=== PATIENT | male | born 1995 | race Caucasian/White ===

== ENCOUNTER 2019-07-08 14:02 | Emergency (ER) | payer SELFPAY ==
[~2019-07-08] VITALS: Ht 182.3 cm; Wt 68.2 kg
--- NOTE | 2019-07-08 14:23 | ED Cough/URI ---
General Stated Complaint: DIZZINESS Source: patient History of Present Illness Date Seen by Provider: Jul 08, 2019 Time Seen by Provider: 14:10 Initial Comments 23-year-old male presents with a female partner with a 2 day history of cough cold headache. Patient has a history of pectus excavatum with no other complications. Patient states his father has had the flu and he feels he is getting the flu 2. Has no history of cardiovascular pulmonary GI or renal disease. He does complain of a headache for the past evening. No history of trauma. Patient has given informed consent for diagnostic and therapeutic services. He also feels weak has low-grade temperature and feels congested Timing/Duration: yesterday Severity/Quality: moderate Prior Episodes/Possible Cause: illness exposure (father with the flu) Modifying Factors: Improves With Activity (feels weak and does not want a work), Improves With Coughing Associated Symptoms: cough, dizziness, headache, muscle aches, shortness of breath, sore throat Allergies and Home Medications Allergies Coded Allergies: No Known Drug Allergies (Unverified , 07/08/19) Patient Home Medication List Home Medication List Reviewed: Yes Review of Systems Review of Systems Constitutional: see HPI, chills, dizziness, fever, malaise, weakness EENTM: nose congestion, throat pain, other (poor oral hygiene) Respiratory: cough, other (history of pectus excavatum) Cardiovascular: other (patient reports feeling weak) Gastrointestinal: nausea Genitourinary: no symptoms reported Musculoskeletal: back pain, neck pain (with headache) Skin: no symptoms reported Psychiatric/Neurological: No Symptoms Reported Hematologic/Lymphatic: No Symptoms Reported Immunological/Allergic: no symptoms reported Past Slfivqz-Poplbx-Cocsaa Hx Patient Social History Recent Foreign Travel: No Past Medical History Respiratory: No Currently Using CPAP: No Currently Using BIPAP: No Cardiac: No Neurological: No Headaches /Migraines Genitourinary: No Gastrointestinal: No Chronic Back Pain (pectus excavatum) Are Your Blood Sugars Over 250: No HEENT: No Loss of Vision: Denies Hearing Impairment: Denies Cancer: No Psychosocial: No Integumentary: No Blood Disorders: No Adverse Reaction/Blood Tranf: No Family Medical History Reviewed Nursing Family Hx Physical Exam Vital Signs - First Documented 07/08/19 14:07 Temp 36.3 Pulse 89 Resp 18 B/P (MAP) 148/83 (104) Pulse Ox 100 O2 Delivery Room Air Capillary Refill : Height: '" Weight: lbs. oz. kg; BMI Method: General Appearance: WD/WN, moderate distress (and cough coryza headache and viral type syndrome), thin (with pectus excavatum) Eyes: Bilateral Eye Normal Inspection, Bilateral Eye PERRL, Bilateral Eye EOMI HEENT: PERRL/EOMI, normal ENT inspection, pharynx normal, pharyngeal erythema, other (nasal discharge) Neck: non-tender, full range of motion, supple, normal inspection Respiratory: chest non-tender, lungs clear, normal breath sounds, no respiratory distress, no accessory muscle use, other (pectus excavatum) Cardiovascular: regular rate, rhythm, no edema, no gallop, no JVD, no murmur Gastrointestinal: normal bowel sounds, non tender, soft, no organomegaly, no pulsatile mass Extremities: normal range of motion, non-tender, normal inspection, no pedal edema, no calf tenderness 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, no motor/sensory deficits, alert, normal mood/affect, oriented x 3 Skin: normal color, warm/dry Lymphatic: no adenopathy Progress/Results/Core Measures Suspected Sepsis SIRS Temperature: Pulse: Respiratory Rate: Blood Pressure / Mean: Results/Orders Lab Results Laboratory Tests Test 07/08/19 14:13 Range/Units Group A Streptococcus Screen NEGATIVE NEGATIVE Micro Results Microbiology 07/08/19 Influenza Types A,B Antigen (LACI) - Final, Complete My Orders Orders - NICCI DORAN DO Influenza A And B Antigens (07/08/19 14:14) Rapid Strep A Screen (07/08/19 14:14) Vital Signs/I&O 07/08/19 07/08/19 14:07 15:00 Temp 36.3 Pulse 89 Resp 18 B/P (MAP) 148/83 (104) Pulse Ox 100 O2 Delivery Room Air Room Air Capillary Refill : Departure Impression Primary Impression: Upper respiratory infection Disposition: 01 HOME, SELF-CARE Condition: Stable Departure-Patient Inst. Decision time for Depature: 15:18 Referrals: NO,LOCAL PHYSICIAN (PCP) Primary Care Physician Patient Instructions: Viral Upper Respiratory Infection, Adult (DC) Add. Discharge Instructions: Patient is negative for strep and negative for influenza A and B. Most likely has a viral syndrome he will continue on acetaminophen fluids rest avoid chills follow-up with primary care provider. NICCI DORAN DO Jul 08, 2019 14:23
[2019-07-08 15:36] VITALS: BP 132/71
== END 2019-07-08 15:36 | disposition home or self-care (01) ==
LOC: EDUNIT# 14:02 → ER FS 14:04
DX: J06.9 Acute upper respiratory infection, unspecified (principal)
CPT/HCPCS: 87430; 87804

== ENCOUNTER 2020-03-18 07:43 | Emergency (ER) | payer SELFPAY ==
--- NOTE | 2020-03-18 08:03 | ED Chest Pain ---
General Chief Complaint: Chest Wall Stated Complaint: CHEST PAIN; SOB Nursing Triage Note: Started having chest pain 4 hours ago while at work. States he has a sharp pain whe he is lifting boxes and moving his arm that takes his breath away. No cardiac hx. Nursing Sepsis Screen: No Definite Risk Source: patient, RN notes reviewed Exam Limitations: no limitations History of Present Illness Date Seen by Provider: Mar 18, 2020 Time Seen by Provider: 08:00 Initial Comments This patient is a 24-year-old male that presents to the emergency department with complaints of chest pain that started 4 hours ago while he was work. Patient describes sharp pain when he was moving and lifting boxes and moving his arms. Patient states he would take his breath away was so sharp. Patient does have a long history of Pectus excavatum. Patient has been advised every since he was 4 years old to have his sternum fixed with a steel marialuisa that the patient states he doesn't want to have that surgery. Patient has no pain at this time. Only had this pain briefly while moving boxes. EKG performed on arrival shows sinus rhythm with a heart rate is [address] changes. Timing/Duration: 1-3 hours Severity/Quality: mild, sharp Location: other (right upper chest) Radiation: no radiation Activities at Onset: activity Prior CP/Workup: no prior chest pain, no prior cardiac workup, non-cardiac Modifying Factors: improves with movement Associated Symptoms: shortness of breath (only at the time of a sharp pain) Allergies and Home Medications Allergies Coded Allergies: No Known Drug Allergies (Unverified , 07/08/19) Patient Home Medication List Home Medication List Reviewed: Yes Review of Systems Review of Systems Constitutional: No no symptoms reported; see HPI; No chills, No diaphoresis, No dizziness, No fever, No malaise, No weakness, No weight gain, No weight loss, No other EENTM: No No Symptoms Reported, No See HPI, No Blurred Vision, No Double Vision, No Eye Pain, No Eye Tearing, No Ear Drainage, No Ear Pain, No Mouth Pain, No Mouth Swelling, No Nose Congestion, No Nose Pain, No Throat Pain, No Throat Swelling, No Other Respiratory: Denies No Symptoms Reported; See HPI; Denies Cough, Denies Orthopnea; Shortness of Air; Denies SOA With Exertion, Denies SOA at Rest, Denies Stridor, Denies Wheezing, Denies Other Cardiovascular: Denies No Symptoms Reported; See HPI, Chest Pain; Denies Edema, Denies Irregular Heart Rate, Denies Lightheadedness, Denies Palpitations, Denies Syncope, Denies Other Gastrointestinal: Denies No Symptoms Reported, Denies See HPI, Denies Abdomen Distended, Denies Abdominal Pain, Denies Blood Streaked Stools, Denies Constipated, Denies Diarrhea, Denies Difficulty Swallowing, Denies Nausea, Denies Poor Appetite, Denies Poor Fluid Intake, Denies Rectal Bleeding, Denies Vomiting, Denies Other Genitourinary: Denies No Symptoms Reported, Denies See HPI, Denies Burning, Denies Discharge, Denies Drainage, Denies Frequency, Denies Flank Pain, Denies Hematuria, Denies Incontinence, Denies Pain, Denies Urgency, Denies Other Musculoskeletal: No no symptoms reported, No see HPI, No back pain, No gout, No joint pain, No joint swelling, No muscle pain, No muscle stiffness, No muscle cramps, No muscle twitching, No muscle weakness, No neck pain, No other Skin: No no symptoms reported, No see HPI, No change in color, No change in hair/nails, No dryness, No hx of skin cancer, No lesions, No lumps, No pruritus, No rash, No other All Other Systems Reviewed Negative Unless Noted: Yes Past Ppjghta-Wshrrp-Mnxovz Hx Patient Social History Alcohol Use: Denies Use Recreational Drug Use: No Smoking Status: Never a Smoker 2nd Hand Smoke Exposure: No Recent Foreign Travel: No Contact w/Someone Who Travel: No Recent Infectious Disease Expo: No Recent Hopitalizations: No Seasonal Allergies Seasonal Allergies: No Past Medical History Surgeries: Yes (ear tubes at 12 years of age) Ear Surgery Respiratory: No Currently Using CPAP: No Currently Using BIPAP: No Cardiac: No Neurological: Yes Headaches /Migraines Genitourinary: No Gastrointestinal: No Musculoskeletal: Yes (sternum excavatum ) Chronic Back Pain Endocrine: No HEENT: No Loss of Vision: Denies Hearing Impairment: Denies Cancer: No Psychosocial: No Integumentary: No Blood Disorders: No Adverse Reaction/Blood Tranf: No Physical Exam Vital Signs Vital Signs - First Documented 03/18/20 07:54 Temp 36.2 Pulse 65 Resp 15 B/P (MAP) 153/80 (104) Pulse Ox 98 Capillary Refill : Less Than 3 Seconds Height, Weight, BMI Height: '" Weight: lbs. oz. kg; 20.00 BMI Method: General Appearance: No Apparent Distress, WD/WN Respiratory: Chest Non Tender, Lungs Clear, Normal Breath Sounds, No Accessory Muscle Use, No Respiratory Distress, Decreased Breath Sounds (on the right side.) Cardiovascular: Regular Rate, Rhythm, No Edema, No Gallop, No JVD, No Murmur, Normal Peripheral Pulses Gastrointestinal: Normal Bowel Sounds, No Organomegaly, No Pulsatile Mass, Non Tender Extremity: Normal Capillary Refill, Normal Inspection, Normal Range of Motion, Non Tender, No Calf Tenderness, No Pedal Edema Skin: Normal Color, Warm/Dry Procedures/Interventions Chest Tube : Chest Tube Position: Right Lower Chest Tube Location: Mid-Axillary Chest Chest Tube Procedure: betadine prep, sterile drapes applied, sterile dressing applied Anesthesia: 1% Lidocaine Volume Anesthetic (ccs): 10 [place] of [place]: Yes Number of Attempts: 1 Tube Drainage: see nurses notes Tube Sutured to Skin: Yes Post Procedure CXR?: Yes Progress Chest tube in place. Much improvement post chest x-ray. Patient breathing much easier. Patient experienced little to no pain. Progress/Results/Core Measures Results/Orders Lab Results Laboratory Tests Test 03/18/20 08:18 Range/Units White Blood Count 12.0 H 4.3-11.0 10^3/uL Red Blood Count 5.63 4.35-5.85 10^6/uL Hemoglobin 16.9 13.3-17.7 G/DL Hematocrit 49 40-54 % Mean Corpuscular Volume 87 80-99 FL Mean Corpuscular Hemoglobin 30 25-34 PG Mean Corpuscular Hemoglobin Concent 35 32-36 G/DL Red Cell Distribution Width 12.5 10.0-14.5 % Platelet Count 224 130-400 10^3/uL Mean Platelet Volume 10.6 H 7.4-10.4 FL Immature Granulocyte % (Auto) 0 % Neutrophils (%) (Auto) 77 H 42-75 % Lymphocytes (%) (Auto) 17 12-44 % Monocytes (%) (Auto) 5 0-12 % Eosinophils (%) (Auto) 1 0-10 % Basophils (%) (Auto) 0 0-10 % Neutrophils # (Auto) 9.2 H 1.8-7.8 X 10^3 Lymphocytes # (Auto) 2.0 1.0-4.0 X 10^3 Monocytes # (Auto) 0.6 0.0-1.0 X 10^3 Eosinophils # (Auto) 0.1 0.0-0.3 10^3/uL Basophils # (Auto) 0.0 0.0-0.1 10^3/uL Immature Granulocyte # (Auto) 0.0 0.0-0.1 10^3/uL Prothrombin Time 13.7 12.2-14.7 SEC INR Comment 1.0 0.8-1.4 Sodium Level 140 135-145 MMOL/L Potassium Level 4.2 3.6-5.0 MMOL/L Chloride Level 100 98-107 MMOL/L Carbon Dioxide Level 26 21-32 MMOL/L Anion Gap 14 5-14 MMOL/L Blood Urea Nitrogen 10 7-18 MG/DL Creatinine 0.91 0.60-1.30 MG/DL Estimat Glomerular Filtration Rate > 60 BUN/Creatinine Ratio 11 Glucose Level 116 H 70-105 MG/DL Calcium Level 10.2 H 8.5-10.1 MG/DL Corrected Calcium 8.5-10.1 MG/DL Total Bilirubin 0.4 0.1-1.0 MG/DL Aspartate Amino Transf (AST/SGOT) 20 5-34 U/L Alanine Aminotransferase (ALT/SGPT) 8 0-55 U/L Alkaline Phosphatase 65 40-136 U/L Troponin I < 0.30 <0.30 NG/ML Pro-B-Type Natriuretic Peptide 12.8 <75.0 PG/ML Total Protein 8.3 H 6.4-8.2 GM/DL Albumin 5.4 H 3.2-4.5 GM/DL My Orders Orders - ONI PHILIP MD Chest 1 View Ap/Pa Only (03/18/20 07:57) Ekg Tracing (03/18/20 07:57) Ed Iv/Invasive Line Start (03/18/20 08:12) Cbc With Automated Diff (03/18/20 08:12) Comprehensive Metabolic Panel (03/18/20 08:12) Troponin I Fs (03/18/20 08:12) Protime With Inr (03/18/20 08:12) Probnp Fs (03/18/20 08:12) Morphine Injection (Morphine Injection (03/18/20 08:12) Ondansetron Injection (Zofran Injectio (03/18/20 08:15) Chest 1 View Ap/Pa Only (03/18/20 08:14) Lidocaine 1% Inj 20 Ml (Xylocaine 1% Inj (03/18/20 08:14) Medications Given in ED Current Medications Medications Dose Ordered Sig/Lizzeth Route Start Time Stop Time Status Last Admin Dose Admin Lidocaine HCl 20 ml STK-MED ONCE .ROUTE 03/18/20 08:14 03/18/20 08:19 DC 03/18/20 08:41 20 ML Ondansetron HCl 4 mg ONCE ONCE IVP 03/18/20 08:15 03/18/20 08:16 DC 03/18/20 08:22 4 MG Vital Signs/I&O 03/18/20 07:54 Temp 36.2 Pulse 65 Resp 15 B/P (MAP) 153/80 (104) Pulse Ox 98 Blood Pressure Mean: 104 Progress Progress Note : Time: 08:47 Progress Note Chest x-ray showed right tension pneumothorax on initial exam. Discussed at length with patient who has a history of Pectus excavatum. Did consent the patient to have chest tube placement right side. Using sterile technique did place a 12 [place]amanian thoracotomy tube right lateral chest midaxillary 9 just anterior to this position between the fifth and sixth rib. Patient expressed little to no pain. Good law[place] of air. Thoracotomy tube sutured into place 2. 0 Prolene. Using petroleum gauze around the tube and then or before bandages and tape to secure bandages. Patient is feeling much improved and breathing easier. Breath sounds complete pulse ox On Room Air. After discussing with patient and family. Patient requesting to go to [facility]. Initial ECG Impression Date: Mar 18, 2020 Initial ECG Impression Time: 07:45 Initial ECG Rate: 61 Initial ECG Rhythm: Normal Sinus Initial ECG Intervals: Normal Initial ECG Impression: Normal Initial ECG Comparisson: No Previous ECG Available Comment Normal sinus rhythm heart rate 61. Departure Impression Primary Impression: Tension pneumothorax, spontaneous Additional Impression: Pectus excavatum Disposition: XFER SHT-TRM HOSP Condition: Stable Transfer Transfer Reason: Patient preference Time Spoke to Accepting Phy: 09:[address] Davies has accepted this patient for transfer he will see patient upon arrival to [facility]. Transfer Time: 09:01 Transfer Facility: [facility] Method of Transfer: EMS Departure-Patient Inst. Referrals: NO,LOCAL PHYSICIAN (PCP/Family) Primary Care Physician ONI PHILIP MD Mar 18, 2020 08:03
[2020-03-18] MEDS ORDERED: morphine INJ 10 MG/ML 1ML (SYR OR VIAL) IVP STA (08:12)
[2020-03-18] MEDS ORDERED: LIDOCAINE 1% INJ 20 ML 20 ML VIAL ONE (08:14)
[2020-03-18] MEDS ORDERED: ONDANSETRON 4 MG/2 ML (SDV) Z0FRAN IVP ONE (08:15)
[2020-03-18 08:28] LABS: BASOPHILS % (AUTO) 0 % (0-10); EOSINOPHILS # (AUTO) 0.1 10^3/uL (0.0-0.3); EOSINOPHILS % (AUTO) 1 % (0-10); HEMATOCRIT 49 % (40-54); HEMOGLOBIN 16.9 G/DL (13.3-17.7); LYMPHOCYTES % (AUTO) 17 % (12-44); MEAN CORPUSCULAR HEMOGLOBIN 30 PG (25-34); MEAN CORPUSCULAR HGB CONC 35 G/DL (32-36); MEAN CORPUSCULAR VOLUME 87 FL (80-99); MEAN PLATELET VOLUME 10.6 FL (7.4-10.4); MONOCYTES # (AUTO) 0.6 X 10^3 (0.0-1.0); MONOCYTES % (AUTO) 5 % (0-12); NEUTROPHILS # (AUTO) 9.2 X 10^3 (1.8-7.8); NEUTROPHILS % (AUTO) 77 % (42-75); PLATELET COUNT 224 10^3/uL (130-400)
[2020-03-18 08:35] LABS: PROTHROMBIN TIME PATIENT 13.7 SEC (12.2-14.7)
[2020-03-18 08:55] LABS: ALANINE AMINOTRANSFERASE 8 U/L (0-55); ALBUMIN 5.4 GM/DL (3.2-4.5); ALKALINE PHOSPHATASE 65 U/L (40-136); BILIRUBIN,TOTAL 0.4 MG/DL (0.1-1.0); BUN/CREATININE RATIO 11; CALCIUM 10.2 MG/DL (8.5-10.1); CARBON DIOXIDE 26 MMOL/L (21-32); CHLORIDE 100 MMOL/L (98-107); CREATININE SERUM 0.91 MG/DL (0.60-1.30); GFR ESTIMATED > 60; GLUCOSE 116 MG/DL (70-105); POTASSIUM 4.2 MMOL/L (3.6-5.0); SODIUM 140 MMOL/L (135-145); TOTAL PROTEIN 8.3 GM/DL (6.4-8.2)
--- NOTE | 2020-03-18 09:03 | Diagnostic Imaging Report ---
INDICATION: Right-sided chest pain and shortness of breath EXAMINATION: Single view chest from 03/18/2020 FINDINGS: There is a large right pneumothorax with early findings of tension. Heart otherwise normal. Pulmonary vasculature poorly evaluated but grossly unremarkable on the left. Left lung clear. IMPRESSION: 1. Large right pneumothorax suspicious for a tension pneumothorax. The subsequent chest x-ray from the same date at a later time is already available at the time of dictation with a chest tube present. Dictated by: Dictated on workstation # [id number]
--- NOTE | 2020-03-18 09:18 | Diagnostic Imaging Report ---
INDICATION: Post chest tube placement. EXAMINATION: 2 view chest 03/18/2020 at 8:51 a.m., comparison made to 03/18/2020 at 8:01 a.m. FINDINGS: There has been interval placement of right-sided chest tube. The previously noted pneumothorax has markedly improved. There are no infiltrates or effusions. Heart and pulmonary vasculature normal. IMPRESSION: 1. Marked improvement of the right pneumothorax status post chest tube placement. Dictated by: Dictated on workstation # [id number]
[2020-03-18 12:08] VITALS: BP 124/92
== END 2020-03-18 12:08 | disposition short-term general hospital (02) ==
LOC: EDUNIT# 07:43 → ER FS 07:45
DX: J93.0 Spontaneous tension pneumothorax (principal); Q67.6 Pectus excavatum
CPT/HCPCS: 32551; 36415; 71045; 80053; 83880; 84484; 85025; 85610; 93005

== ENCOUNTER 2020-07-11 19:19 | Emergency (ER) | payer SELFPAY ==
[~2020-07-11] VITALS: Ht 182.9 cm; Wt 72.6 kg
[2020-07-11 19:24] VITALS: BP 173/78
--- NOTE | 2020-07-11 19:44 | ED General ---
General Chief Complaint: Altered Mental Status Stated Complaint: AMS Source of Information: Patient History of Present Illness Date Seen by Provider: Jul 11, 2020 Time Seen by Provider: 19:21 Initial Comments 24-year-old male presenting with complaints of sudden onset of confusion. He states 45 minutes prior to arrival he started having confusion. He was with his girlfriend when this started. He is having trouble trying to concentrate and answer questions. He states that this is happened to him before but could not give specifics. He is very anxious and having trouble sitting still. He initially denied using any drugs but then later stated that he had used marijuana earlier today. He denies any headache or pain anywhere in his body. He denied any head injury. He denies taking any medications on a routine basis and denies allergies to medications. Allergies and Home Medications Allergies Coded Allergies: No Known Drug Allergies (Unverified , 07/08/19) Patient Home Medication List Home Medication List Reviewed: Yes Review of Systems Review of Systems Constitutional: No chills, No fever EENTM: no symptoms reported Respiratory: no symptoms reported Cardiovascular: no symptoms reported Gastrointestinal: no symptoms reported Genitourinary: no symptoms reported Musculoskeletal: no symptoms reported Skin: no symptoms reported Psychiatric/Neurological: Anxiety; Denies Headache; Other (confusion) Past Erpprbs-Cdwxsk-Vfmazb Hx Past Med/Social Hx: Reviewed Nursing Past Med/Soc Hx Patient Social History 2nd Hand Smoke Exposure: No Recent Hopitalizations: No Seasonal Allergies Seasonal Allergies: No Past Medical History Surgeries: Yes (ear tubes at 12 years of age) Ear Surgery Respiratory: Yes (spontaneous pneumothorax 2019) Currently Using CPAP: No Currently Using BIPAP: No Cardiac: No Neurological: Yes Headaches /Migraines, Seizure Disorder Genitourinary: No Gastrointestinal: No Musculoskeletal: Yes (sternum excavatum ) Chronic Back Pain Endocrine: No HEENT: No Loss of Vision: Denies Hearing Impairment: Denies Cancer: No Psychosocial: No Integumentary: No Blood Disorders: No Adverse Reaction/Blood Tranf: No Physical Exam Vital Signs Vital Signs - First Documented 07/11/20 19:24 Temp 36.5 Pulse 95 Resp 19 B/P (MAP) 173/78 (109) O2 Delivery Room Air Capillary Refill : Height, Weight, BMI Height: '" Weight: lbs. oz. kg; 20.00 BMI Method: General Appearance: WD/WN, Anxious (can not sit still), Mild Distress HEENT: PERRL/EOMI, Pharynx Normal Neck: Full Range of Motion, Normal Inspection, Non Tender, Supple Respiratory: Chest Non Tender, Lungs Clear, Normal Breath Sounds, No Accessory Muscle Use, No Respiratory Distress Cardiovascular: Regular Rate, Rhythm, Normal Peripheral Pulses Gastrointestinal: No Pulsatile Mass, Non Tender, Soft Extremity: Normal Capillary Refill, No Pedal Edema Neurologic/Psychiatric: Alert, Oriented x3, Other (anxious) Skin: Normal Color, Warm/Dry Progress/Results/Core Measures Suspected Sepsis SIRS Temperature: Pulse: Respiratory Rate: Blood Pressure / Mean: Results/Orders Lab Results Laboratory Tests Test 07/11/20 19:35 Range/Units Urine Color YELLOW Urine Clarity CLEAR Urine pH 7.0 5-9 Urine Specific [place] 1.020 1.016-1.022 Urine Protein NEGATIVE NEGATIVE Urine Glucose (UA) NEGATIVE NEGATIVE Urine Ketones NEGATIVE NEGATIVE Urine Nitrite NEGATIVE NEGATIVE Urine Bilirubin NEGATIVE NEGATIVE Urine Urobilinogen 0.2 < = 1.0 MG/DL Urine Leukocyte Esterase NEGATIVE NEGATIVE Urine RBC (Auto) NEGATIVE NEGATIVE Urine RBC RARE /HPF Urine WBC RARE /HPF Urine Squamous Epithelial Cells NONE /HPF Urine Crystals NONE /LPF Urine Bacteria NEGATIVE /HPF Urine Casts NONE /LPF Urine Mucus SMALL H /LPF Urine Culture Indicated NO Urine Opiates Screen NEGATIVE NEGATIVE Urine Oxycodone Screen NEGATIVE NEGATIVE Urine Methadone Screen NEGATIVE NEGATIVE Urine Propoxyphene Screen NEGATIVE NEGATIVE Urine Barbiturates Screen NEGATIVE NEGATIVE Ur Tricyclic Antidepressants Screen NEGATIVE NEGATIVE Urine Phencyclidine Screen NEGATIVE NEGATIVE Urine Amphetamines Screen NEGATIVE NEGATIVE Urine Methamphetamines Screen NEGATIVE NEGATIVE Urine Benzodiazepines Screen NEGATIVE NEGATIVE Urine Cocaine Screen NEGATIVE NEGATIVE Urine Cannabinoids Screen POSITIVE H NEGATIVE My Orders Orders - KEISHA SCHULZ MD Ua Culture If Indicated (07/11/20 19:35) Drug Screen Stat (Urine) (07/11/20 19:35) Ct Head Wo (07/11/20 19:37) Vital Signs/I&O 07/11/20 19:24 Temp 36.5 Pulse 95 Resp 19 B/P (MAP) 173/78 (109) O2 Delivery Room Air Capillary Refill : Progress Note #1: Progress Note Will check UA with UDS and CT head without contrast. From review of his history in the computer he has a hx of migraine headache but no mention of confusion and anxiety with them. Will try to check with his girlfriend to see if she has any additional history or details to provide. Progress Note #2: Time: 20:33 Progress Note No acute significant abnormality on the CT of his head. His urinalysis and drug screen only showed marijuana without any acute significant abnormality. Patient had come in the room and told the nursing staff that he was feeling better and remembered that he did have a history of seizures when he was younger. It has been 3 years since his last seizure. When he has had those in the past this is happened for him. Encourage patient not to drive until he is being cleared by neurology or primary care. Try to follow a regular sleep cycle and stay well- hydrated. Diagnostic Imaging Diagonstic Imaging: CT Plain Films/CT/US/NM/MRI: head Comments NAME: DINA SIM MED REC#: [id number] PT STATUS: REG ER : 1995 PHYSICIAN: KEISHA SCHULZ MD ADMIT DATE: 07/11/20/ER FS Draft Date of Exam:07/11/20 CT HEAD WO PROCEDURE: CT head without contrast. TECHNIQUE: Multiple contiguous axial images were obtained through the brain without the use of intravenous contrast. Auto Exposure Controls were utilized during the CT exam to meet ALARA standards for radiation dose reduction. INDICATION: Acute confusion. CT HEAD: CT images of the head were obtained. FINDINGS: Ventricles and sulci are within normal limits for size. There is no intracranial hemorrhage identified. There is no abnormal mass effect or shift of midline structures. IMPRESSION: Unremarkable CT of the head. Dictated on workstation # [id number] Dict: 07/11/202009 Trans: 07/11/202026 [facility] [id number] Interpreted by: ALAN IRIZARRY MD Electronically signed by: Departure Impression Primary Impression: Confusion Additional Impression: History of seizure disorder Disposition: HOME, SELF-CARE Condition: Improved Departure-Patient Inst. Decision time for Depature: 20:38 Referrals: NO,LOCAL PHYSICIAN (PCP) Primary Care Physician [facility] Patient Instructions: Altered Mental Status (DC), Seizures, Adult (DC) Add. Discharge Instructions: do not drive yourself until cleared by primary provider or neurologist in case mindi's episode of confusion was due to a seizure. Stay well hydrated and follow a regular sleep schedule. Establish care with a primary clinic and follow up for continued concerns and evaluation. All discharge instructions reviewed with patient and/or family. Voiced understanding. KEISHA SCHULZ MD Jul 11, 2020 19:44
[2020-07-11 19:49] LABS: CLARITY,URINE CLEAR; COLOR,URINE YELLOW
[2020-07-11 19:50] LABS: BACTERIA,URINE NEGATIVE /HPF; BILIRUBIN,URINE NEGATIVE (NEGATIVE); GLUCOSE, URINE (UA) NEGATIVE (NEGATIVE); KETONES,URINE NEGATIVE (NEGATIVE); LEUKOCYTE ESTERASE ,URINE NEGATIVE (NEGATIVE); NITRITE,URINE NEGATIVE (NEGATIVE); PROTEIN,URINE NEGATIVE (NEGATIVE); RBC,URINE RARE /HPF; WBC,URINE RARE /HPF
[2020-07-11 20:00] LABS: AMPHETAMINE SCREEN, URINE NEGATIVE (NEGATIVE); BARBITURATE SCREEN URINE NEGATIVE (NEGATIVE); BENZODIAZEPINES SCREEN URINE NEGATIVE (NEGATIVE); CANNABINOID SCREEN, URINE POSITIVE (NEGATIVE); COCAINE SCREEN URINE NEGATIVE (NEGATIVE); METHADONE STAT NEGATIVE (NEGATIVE); METHAMPHETAMINE SCREEN URINE S NEGATIVE (NEGATIVE); OPIATE SCREEN URINE NEGATIVE (NEGATIVE); OXYCODONE STAT NEGATIVE (NEGATIVE); PROPOXYPHENE STAT NEGATIVE (NEGATIVE); TRICYCLIC ANTIDEPRESSANTS SCRE NEGATIVE (NEGATIVE)
--- NOTE | 2020-07-11 20:29 | Diagnostic Imaging Report ---
PROCEDURE: CT head without contrast. TECHNIQUE: Multiple contiguous axial images were obtained through the brain without the use of intravenous contrast. Auto Exposure Controls were utilized during the CT exam to meet ALARA standards for radiation dose reduction. INDICATION: Acute confusion. CT HEAD: CT images of the head were obtained. FINDINGS: Ventricles and sulci are within normal limits for size. There is no intracranial hemorrhage identified. There is no abnormal mass effect or shift of midline structures. IMPRESSION: Unremarkable CT of the head. Dictated by: Dictated on workstation # [id number]
== END 2020-07-11 20:41 | disposition home or self-care (01) ==
LOC: EDUNIT# 19:19 → ER FS 19:22
DX: R41.0 Disorientation, unspecified (principal); F41.9 Anxiety disorder, unspecified
CPT/HCPCS: 70450; 80306; 81000

== ENCOUNTER → 2021-01-10 | Outpatient (CLI) | payer OTHER ==
--- NOTE | 2021-01-10 10:15 | Diagnostic Imaging Report ---
INDICATION: Back pain. 3 views were obtained FINDINGS: Alignment, vertebral body heights and disc spaces are within normal limits. There is no spondylolysis or spondylolisthesis. There is no acute fracture or traumatic subluxation. IMPRESSION: No acute radiographic abnormality. Dictated by: Dictated on workstation # [id number]
== END ==
LOC: RAD 09:34
PROVIDERS: ATTEND Surgery
DX: Z02.71 Encounter for disability determination (principal); M54.5 Low back pain
CPT/HCPCS: 72100